=== PATIENT | male | born 1955 | race African-American/Black ===

== ENCOUNTER 2019-12-19 16:30 | Inpatient (IN) | payer MEDICARE ==
[2019-12-19] VITALS (15 sets, daily range): BP systolic 80–174; BP diastolic 34–90; BMI 17.0
[~2019-12-19] VITALS: Ht 180.3 cm; Wt 124.7 kg
--- NOTE | ~2019-12-19 | EC ---
PATIENT:JHON HERNANDEZ DATE OF SERVICE: 12/19/19 SEX: M MEDICAL RECORD: [id number] DATE OF : [birth year] LOCATION:[place] [address] AGE OF PATIENT: 64 ADMISSION DATE: 12/19/19 REFERRING PHYSICIAN: INTERPRETING PHYSICIAN: KD JAIMES MD ECHOCARDIOGRAM REPORT ECHO CHARGES 4 ECHO COMPLETE Date: 12/20/19 CLINICAL DIAGNOSIS: SOB ECHOCARDIOGRAPHIC MEASUREMENTS (adult normal given) AC root (d.<3.7cm) 3.3 cm LV Septum d (<1.2 cm> 1.1 cm Valve Excursion 1.8 cm LV Septum (systole) 1.7 cm Left Atria (s.<4.0cm> 4.1 cm LVPW d(<1.2cm) 0.8 cm RV (d.<2.3cm) 3.1 cm LVPW (sytole) 1.2 cm LV diastole(<5.6CM) 5.7 cm MV E-F(>70mm/sec) cm LV systole 3.6 cm LVOT Diameter 1.9 cm MV exc.(>10mm) cm Est.ejection fraction (50-75%) % DOPPLER: LVIT cm/sec A 54 cm/sec E 41 cm/sec LA cm/sec RVSP 15.0 mmHg LVOT 92 cm/sec AOP1/2T m/s Asc. Ao 118 cm/sec RVOT 68 cm/sec RA cm/sec PA 77 cm/sec AV Gradient Peak 5.6 mmHg AV Mean 3.0 mmHg AV Area 1.7 cm MV Gradient Peak 3.7 mmHg MV Mean 1.2 mmHg MV Area cm COMMENTS: Retail Account Manager: [facility] Final Inspector: Bryant Jaimes TAPE# PACS Pericardial Effusion Y DATE OF SERVICE: PROCEDURE: Transthoracic echocardiogram. FINDINGS: 1. Left ventricle is mildly dilated with left ventricular hypertrophy. Ejection fraction of 50%. There is mild global hypokinesis. 2. Left atrium is mildly enlarged. 3. The aortic valve shows normal structure and function. 4. Mitral valve is normal grossly with no evidence of significant mitral ECHOCARDIOGRAM REPORT [id number] JHON HERNANDEZ regurgitation. 5. Tricuspid valve has trace tricuspid regurgitation with normal pressures. 6. Right ventricle is mildly enlarged with normal function. 7. Right atrium is normal. 8. Pulmonic valve is normal. 9. There is a mild pericardial effusion without evidence of tamponade physiology. It may be reasonable to repeat that study next week to see if there has been any change in the pericardial effusion. TRANSINT:[id number] Voice Confirmation ID: [id number] DOCUMENT ID: [id number] KD JAIMES MD CC: [id number] DICTATION DATE: 12/21/19 1035 MACHINERY REPAIR MAINTENANCE SUPERVISOR: 12/21/19 1532 ADM IN [place] [id number] [place] [address]
[2019-12-19 20:59] LABS: ALBUMIN 2.6 g/dL (3.4-5.0); BILIRUBIN - DIRECT 0.3 mg/dL (0.00-0.30); BILIRUBIN - INDIRECT 0.5 mg/dL (0.00-1.00); BILIRUBIN - TOTAL 0.8 mg/dL (0.2-1.3); PROTEIN - SERUM 7.1 g/dL (6.4-8.2)
[2019-12-20] VITALS (24 sets, daily range): BP systolic 115–156; BP diastolic 61–100; BMI 17.0
[2019-12-20 04:12] LABS: BASOPHILS 0.3 % (0-2); EOSINOPHILS 0 % (0-7); HEMATOCRIT 38.6 % (42.0-54.0); IMMATURE GRANULOCYTES 0.3 % (0-5); LYMPHOCYTES 17.9 % (15-50); MCH 28.2 pg (26.0-34.0); MCHC 31.1 g/dL (31.0-37.0); MCV 90.8 fL (80.0-100.0); MEAN PLATELET VOLUME 10.7 fL (7.4-10.4); MONOCYTES 5.3 % (2-11); NEUTROPHILS 76.2 % (40-80); PLATELET COUNT 187 10x3/uL (130-400); RBC 4.25 10x6/uL (4.20-6.10); RDW 13.3 % (11.5-14.5); WBC 3.2 10x3/uL (4.8-10.8)
[2019-12-20 04:29] LABS: INR 0.98 (0.85-1.17)
[2019-12-20 04:31] LABS: D-DIMER-QUANTITATIVE 0.68 ug/mLFEU (0.20-0.54)
[2019-12-20 04:46] LABS: ALBUMIN 2.3 g/dL (3.4-5.0); ANION GAP 8.4 mmol/L (8-16); BILIRUBIN - TOTAL 0.6 mg/dL (0.2-1.3); CALCIUM 7.6 mg/dL (8.5-10.1); CARBON DIOXIDE 30.5 mmol/L (21.0-32.0); CREATININE - SERUM 1.7 mg/dL (0.6-1.3); MAGNESIUM - SERUM 1.8 mg/dL (1.8-2.4); POTASSIUM - SERUM 3.9 mmol/L (3.5-5.1); PROTEIN - SERUM 6.4 g/dL (6.4-8.2)
[2019-12-20 04:55] LABS: TROPONIN-I 1.275 ng/mL (0.000-0.060)
--- NOTE | 2019-12-20 11:30 | NUR ---
IV STARTED IN R HAND WITH 20 G CATH. FLUSHED EASILY AND GOOD BLOOD RETURN NOTED.
--- NOTE | 2019-12-20 12:38 | NUR ---
DR. ANAYA NOTIFIED OF CVP AND ARTLINE CONSULT.
--- NOTE | 2019-12-20 17:44 | NUR ---
SPOKE WITH DR. ANAYA ABOUT CVL PLACEMENT PER RADIOLOGIST REQUEST. INFORMED THAT WE COULD USE TO DRAW BLOOD BUT NOT PUT LARGE AMOUNTS OF FLUID THROUGH. DR. ANAYA WILL COME AND CHANGE IN THE AM.
--- NOTE | 2019-12-20 19:30 | NUR ---
SHIFT ASSESSMENT COMPLETED SEE FLOWSHEET VSS CPOC
[2019-12-21] VITALS (25 sets, daily range): BP systolic 129–198; BP diastolic 53–106
--- NOTE | 2019-12-21 02:50 | NUR ---
PT RESTING COMFORTABLY INTUBATED/SEDATED ON THE VENTILATOR. VSS CPOC
--- NOTE | 2019-12-21 03:54 | NUR ---
UNABLE TO OBTAIN SRS AT THIS TIME
[2019-12-21 05:58] LABS: BASOPHILS 0.3 % (0-2); EOSINOPHILS 0 % (0-7); HEMATOCRIT 35.5 % (42.0-54.0); HEMOGLOBIN 10.8 g/dL (13.5-17.5); MCH 27.7 pg (26.0-34.0); MCHC 30.4 g/dL (31.0-37.0); MEAN PLATELET VOLUME 10.8 fL (7.4-10.4); MONOCYTES 19.4 % (2-11); NEUTROPHILS 54.3 % (40-80); RDW 13.5 % (11.5-14.5); WBC 3.4 10x3/uL (4.8-10.8)
[2019-12-21 06:08] LABS: PLATELET COUNT 230 10x3/uL (130-400)
--- NOTE | 2019-12-21 06:38 | NUR ---
OGT AIR BOLUS AUDIBLE LLQ - TUBE FEED INITIATED AT THIS TIME PER ORDER. VSS WILL CONTINUE TO MONITOR
[2019-12-21 06:57] LABS: ALBUMIN 2.4 g/dL (3.4-5.0); ANION GAP 11.2 mmol/L (8-16); CALCIUM 8.3 mg/dL (8.5-10.1); CARBON DIOXIDE 28.5 mmol/L (21.0-32.0); CREATININE - SERUM 1.5 mg/dL (0.6-1.3); PHOSPHOROUS 1.9 mg/dL (2.5-4.9); POTASSIUM - SERUM 3.7 mmol/L (3.5-5.1); PROTEIN - SERUM 6.6 g/dL (6.4-8.2)
--- NOTE | 2019-12-21 07:10 | NUR ---
REPORT RECEIVED FROM OFF GOING NURSE. PATIENT LAYING IN BED ON BACK WITH HOB ELEVATED [address] WITH AC FIO2 50% RATE 20 PEEP 8 RR 19. CAMPOS CATHETER INTACT AND DRAINING CLEAR YELLOW URINE.LT IJ IN PLACE WITH MANIFOLD IN PLACE WIH IV INFUSING. SEE FLOWSHEET. SANDRA SOFT WRIST RESTRAINTS IN PLACE. WILL CONTINUE WITH PLAN OF CARE. SR UP X 2 BED IN LOW POSIION AND CALL LIGHT IN REACH.
[2019-12-21 07:48] LABS: BILIRUBIN - TOTAL 0.61 mg/dL (0.2-1.3)
--- NOTE | 2019-12-21 19:30 | NUR ---
SHIFT REPORT RECEIVED, PT SYSTOLIC 170-180 - PER OFF GOING NURSE RANDY HAS BEEN NOTIFIED AND IS HOPING PREVIOUSLY ORDERED MEDS WILL LOWER BLOOD PRESSURE A SIDE EFFECT. WILL CONTINUE TO MONITOR
--- NOTE | 2019-12-21 19:49 | NUR ---
paged dr aguayo at this time regarding patient status
--- NOTE | 2019-12-21 20:10 | NUR ---
dr aguayo returned call, new orders received
--- NOTE | 2019-12-21 20:56 | NUR ---
SHIFT ASSESSMENT COMPLETED SEE FLOWSHEET - NOTED TEMP, CALLED FAMILY PRACTICE ONCE OUTSIDE OF THE [facility] ROOM - SEE NOTE - SYSTOLIC 180-190'S - PATIENT RECEIVED SCHEDULED HTN MEDICATION PER ORDER, WILL MONITOR CLOSELY. PT SEDATED, RESPONSIVE TO PAIN. SEE FLOWSHEET FOR FULL ASSESSMENT
--- NOTE | 2019-12-21 22:02 | NUR ---
PAGED FAMILY PRACTICE AT THIS TIME - IMMEDIATE CALL BACK FROM KALEIGH GODOY APN - NEW ORDERS RECEIVED
--- NOTE | 2019-12-21 23:59 | NUR ---
PAGED DR PADILLA, IMMEDIATE CALL BACK, REPORTED PT SYSTOLIC OF 190 DESPITE ORDERED PO MEDICATIONS. NEW ORDERS RECEIVED AT THIS TIME.
[2019-12-22] VITALS (27 sets, daily range): BP systolic 130–290; BP diastolic 46–87
--- NOTE | 2019-12-22 07:10 | NUR ---
REPORT RECEIVED FROM FOUNDRY EQUIPMENT MECHANIC AND PATIENT CARE ASSUMED. PATIENT LAYING IN BED ON BACK WITH EYES CLOSED VENT IN PLACE AC RATE 20 FIO2 50% PEEP 8 02 SAT 96% BP 155/72 HR 86 R23. SANDRA SOFT WRIST RESTRAINTS IN PLACE. IV'S INFUSING TO LEFT SUBCLAVIAN CVL. ORAL CARE PERFORMED PATIENT REPOSIONED FOR COMFORT. WILL CONTINUE WITH PLAN OF CARE. SR UP X 2 BED IN LOW POSITON AND CALL LIGHT IN REACH.
--- NOTE | 2019-12-22 07:14 | NUR ---
DR TREVIÑO RETURNED CALL NEW ORDERS RECEIVED
[2019-12-22 07:43] LABS: BASOPHILS 0.2 % (0-2); EOSINOPHILS 0 % (0-7); HEMATOCRIT 36.2 % (42.0-54.0); HEMOGLOBIN 10.8 g/dL (13.5-17.5); IMMATURE GRANULOCYTES 0.2 % (0-5); LYMPHOCYTES 26.7 % (15-50); MCH 27.4 pg (26.0-34.0); MCHC 29.8 g/dL (31.0-37.0); MCV 91.9 fL (80.0-100.0); MEAN PLATELET VOLUME 10.5 fL (7.4-10.4); MONOCYTES 16.3 % (2-11); NEUTROPHILS 56.6 % (40-80); PLATELET COUNT 218 10x3/uL (130-400); RBC 3.94 10x6/uL (4.20-6.10); RDW 13.7 % (11.5-14.5)
[2019-12-22 07:55] LABS: WBC 4.3 10x3/uL (4.8-10.8)
[2019-12-22 08:16] LABS: ALBUMIN 2.3 g/dL (3.4-5.0); ANION GAP 8.9 mmol/L (8-16); BILIRUBIN - TOTAL 0.78 mg/dL (0.2-1.3); C-REACTIVE PROTEIN 5.3 mg/dL (0.0-0.9); CALCIUM 8.1 mg/dL (8.5-10.1); CARBON DIOXIDE 30.9 mmol/L (21.0-32.0); CREATININE - SERUM 1.3 mg/dL (0.6-1.3); MAGNESIUM - SERUM 2.1 mg/dL (1.8-2.4); PHOSPHOROUS 1.8 mg/dL (2.5-4.9); POTASSIUM - SERUM 3.8 mmol/L (3.5-5.1); PROTEIN - SERUM 6.4 g/dL (6.4-8.2)
[2019-12-23] VITALS (24 sets, daily range): BP systolic 117–153; BP diastolic 48–70
[2019-12-23 06:24] LABS: BASOPHILS 0.2 % (0-2); EOSINOPHILS 0 % (0-7); HEMATOCRIT 36.4 % (42.0-54.0); HEMOGLOBIN 10.8 g/dL (13.5-17.5); IMMATURE GRANULOCYTES 0.2 % (0-5); LYMPHOCYTES 21.1 % (15-50); MCH 27.3 pg (26.0-34.0); MCHC 29.7 g/dL (31.0-37.0); MCV 91.9 fL (80.0-100.0); MEAN PLATELET VOLUME 10.9 fL (7.4-10.4); MONOCYTES 11.5 % (2-11); PLATELET COUNT 230 10x3/uL (130-400); RBC 3.96 10x6/uL (4.20-6.10); RDW 13.5 % (11.5-14.5); WBC 4.3 10x3/uL (4.8-10.8)
[2019-12-23 07:28] LABS: ALBUMIN 2.3 g/dL (3.4-5.0); ANION GAP 8.4 mmol/L (8-16); BILIRUBIN - TOTAL 0.78 mg/dL (0.2-1.3); CALCIUM 7.9 mg/dL (8.5-10.1); CARBON DIOXIDE 28.5 mmol/L (21.0-32.0); CREATININE - SERUM 1.3 mg/dL (0.6-1.3); MAGNESIUM - SERUM 2.4 mg/dL (1.8-2.4); POTASSIUM - SERUM 3.9 mmol/L (3.5-5.1); PROTEIN - SERUM 6.3 g/dL (6.4-8.2)
[2019-12-23 07:29] LABS: PHOSPHOROUS 2.3 mg/dL (2.5-4.9)
--- NOTE | 2019-12-23 10:16 | NUR ---
Nutrition follow-up: Intubated, sedated with propofol @ 18 ml/hr Pulmocare started @ 15 ml/hr via OGT with increase to goal rate of 40 ml/hr Labs reviewed WT: 121# RDN following.
[2019-12-24] VITALS (24 sets, daily range): BP systolic 133–167; BP diastolic 47–70
[2019-12-24 07:21] LABS: BASOPHILS 0 % (0-2); EOSINOPHILS 0 % (0-7); HEMATOCRIT 36.1 % (42.0-54.0); HEMOGLOBIN 11.1 g/dL (13.5-17.5); IMMATURE GRANULOCYTES 0.3 % (0-5); LYMPHOCYTES 12.8 % (15-50); MCH 27.8 pg (26.0-34.0); MCHC 30.7 g/dL (31.0-37.0); MCV 90.5 fL (80.0-100.0); MEAN PLATELET VOLUME 10.6 fL (7.4-10.4); MONOCYTES 9.9 % (2-11); PLATELET COUNT 242 10x3/uL (130-400); RBC 3.99 10x6/uL (4.20-6.10); RDW 13.3 % (11.5-14.5)
[2019-12-24 07:28] LABS: WBC 6.1 10x3/uL (4.8-10.8)
[2019-12-24 07:42] LABS: ALBUMIN 2.1 g/dL (3.4-5.0); ANION GAP 8.6 mmol/L (8-16); BILIRUBIN - TOTAL 0.92 mg/dL (0.2-1.3); CALCIUM 8.1 mg/dL (8.5-10.1); CARBON DIOXIDE 28.3 mmol/L (21.0-32.0); CREATININE - SERUM 1.1 mg/dL (0.6-1.3); MAGNESIUM - SERUM 2.5 mg/dL (1.8-2.4); PHOSPHOROUS 2.6 mg/dL (2.5-4.9); POTASSIUM - SERUM 3.9 mmol/L (3.5-5.1); PROTEIN - SERUM 5.9 g/dL (6.4-8.2)
--- NOTE | 2019-12-24 10:25 | NUR ---
REBECCA, FAMILY MEMBER, CALLED AND PROVIED THE PASSWORD. UPDATE PROVIDED.
--- NOTE | 2019-12-24 16:20 | NUR ---
FULL CHD BED BATH GIVEN. FULL LINEN CHANGE. PT TOLERATED WELL.
[2019-12-25] VITALS (24 sets, daily range): BP systolic 139–162; BP diastolic 47–87
[2019-12-25 06:35] LABS: BASOPHILS 0.1 % (0-2); EOSINOPHILS 0 % (0-7); HEMATOCRIT 33.7 % (42.0-54.0); HEMOGLOBIN 10.4 g/dL (13.5-17.5); IMMATURE GRANULOCYTES 0.2 % (0-5); LYMPHOCYTES 6.2 % (15-50); MCHC 30.9 g/dL (31.0-37.0); MCV 90.8 fL (80.0-100.0); MEAN PLATELET VOLUME 10.9 fL (7.4-10.4); MONOCYTES 6.1 % (2-11); NEUTROPHILS 87.4 % (40-80); PLATELET COUNT 225 10x3/uL (130-400); RBC 3.71 10x6/uL (4.20-6.10); RDW 13.6 % (11.5-14.5)
[2019-12-25 06:38] LABS: WBC 12.6 10x3/uL (4.8-10.8)
[2019-12-25 07:09] LABS: ALBUMIN 1.9 g/dL (3.4-5.0); BILIRUBIN - TOTAL 0.89 mg/dL (0.2-1.3); CALCIUM 7.1 mg/dL (8.5-10.1); CARBON DIOXIDE 24.2 mmol/L (21.0-32.0); CREATININE - SERUM 1.2 mg/dL (0.6-1.3); MAGNESIUM - SERUM 2.4 mg/dL (1.8-2.4); PHOSPHOROUS 2.8 mg/dL (2.5-4.9); POTASSIUM - SERUM 3.5 mmol/L (3.5-5.1); PROTEIN - SERUM 5.1 g/dL (6.4-8.2)
[2019-12-25 07:16] LABS: ANION GAP 9.3 mmol/L (8-16)
--- NOTE | 2019-12-25 10:13 | NUR ---
Nutrition follow-up: Pt intubated, sedated with propofol @ 24 cc/hr Pulmocare infusing @ 25 ml/hr with goal rate of 40 ml/hr Labs reviewed Wt: 121# Pt should already be at goal rate Will discuss pt in IDT meeting today RDN following.
[2019-12-26] VITALS (24 sets, daily range): BP systolic 138–162; BP diastolic 39–67
--- NOTE | 2019-12-26 07:52 | NUR ---
PS TRIAL 13/12 @5097
[2019-12-26 07:55] LABS: BASOPHILS 0 % (0-2); EOSINOPHILS 0.1 % (0-7); HEMOGLOBIN 10.6 g/dL (13.5-17.5); IMMATURE GRANULOCYTES 0.4 % (0-5); LYMPHOCYTES 5.4 % (15-50); MCH 28.1 pg (26.0-34.0); MCHC 30.3 g/dL (31.0-37.0); MEAN PLATELET VOLUME 11.5 fL (7.4-10.4); MONOCYTES 6.4 % (2-11); NEUTROPHILS 87.7 % (40-80); PLATELET COUNT 210 10x3/uL (130-400); RBC 3.77 10x6/uL (4.20-6.10); RDW 13.9 % (11.5-14.5)
[2019-12-26 07:58] LABS: MCV 92.8 fL (80.0-100.0); WBC 16.9 10x3/uL (4.8-10.8)
[2019-12-26 08:05] LABS: BILIRUBIN - TOTAL 1.23 mg/dL (0.2-1.3); CALCIUM 8.2 mg/dL (8.5-10.1); CREATININE - SERUM 1.3 mg/dL (0.6-1.3); PROTEIN - SERUM 5.5 g/dL (6.4-8.2)
[2019-12-26 08:07] LABS: ANION GAP 10.2 mmol/L (8-16); POTASSIUM - SERUM 4.2 mmol/L (3.5-5.1)
--- NOTE | 2019-12-26 10:19 | NUR ---
spoke with pt family member. gave update and answered questions. will continue to monitor
--- NOTE | 2019-12-26 14:57 | NUR ---
pt switched back over to a/c on vent. became agitated so switched over. will continue to monitor
[2019-12-27] VITALS (26 sets, daily range): BP systolic 140–169; BP diastolic 49–67
[2019-12-27 06:38] LABS: BASOPHILS 0 % (0-2); EOSINOPHILS 0 % (0-7); HEMATOCRIT 30.9 % (42.0-54.0); HEMOGLOBIN 9.2 g/dL (13.5-17.5); IMMATURE GRANULOCYTES 0.5 % (0-5); LYMPHOCYTES 5.1 % (15-50); MCH 27.7 pg (26.0-34.0); MCHC 29.8 g/dL (31.0-37.0); MCV 93.1 fL (80.0-100.0); MONOCYTES 5.4 % (2-11); PLATELET COUNT 170 10x3/uL (130-400); RBC 3.32 10x6/uL (4.20-6.10); RDW 14.3 % (11.5-14.5); WBC 17.5 10x3/uL (4.8-10.8)
[2019-12-27 07:22] LABS: ALBUMIN 1.7 g/dL (3.4-5.0); BILIRUBIN - TOTAL 1.98 mg/dL (0.2-1.3); CALCIUM 7.1 mg/dL (8.5-10.1); CARBON DIOXIDE 24.1 mmol/L (21.0-32.0); CREATININE - SERUM 1.1 mg/dL (0.6-1.3)
[2019-12-27 07:28] LABS: ANION GAP 11.3 mmol/L (8-16); POTASSIUM - SERUM 3.4 mmol/L (3.5-5.1)
--- NOTE | 2019-12-27 13:24 | NUR ---
Nutrition Follow-up: Chart reviewed and per IDT, patient is off vent and tolerating BiPap. TF order: Pulmocare @ 10mL/hr-- TF off at this time Last BM: none recorded since admit x 8 days now. Wt: 122# (12/20/19) Meds noted: SSI, zinc sulfate, vit D, vit C Labs noted: Na 154(H), K 3.4(L), BUN 31(H), Glu 256(H), POC Glu 273(H) Recommend COLLECTION SYSTEMS TECHNICIAN eval for safe PO diet initiation. Recommend Diabetic and Cardiac diet restrictions. If unable to initiate PO diet within 24-48hrs recommend resume nutrition support. RD following.
--- NOTE | 2019-12-27 21:22 | MORECARE ---
CASE MANAGEMENT DISCHARGE SUMMARY PATIENT: JHON HERNANDEZ UNIT: [id number] ADM DATE: 12/19/19 AGE: 64 : 59 SEX: M ROOM/BED: D.2310 AUTHOR: CONNIE MURDOCK PHYSICIAN: REFERRING PHYSICIAN: INDIA LOPES MD DATE OF SERVICE: 12/27/19 Discharge Plan Patient Name: JHON HERNANDEZ [facility] [facility] 1955 Planned Disposition: Anticipated Discharge Date: Discharge Date: Expected LOS: Initial Reviewer: [email or web address] Initial Review Date: 12/19/2019 Generated: 12/27/19 10:22 pm DCPIA - Discharge Planning Initial Assessment Updated by [email or web address]: Claudia Vásquez on 12/27/19 9:21 pm * Is the patient Alert and Oriented? No * PCP [facility] * Pharmacy [facility] * Preadmission Environment [facility] * Facility Name [facility] * ADLs Partial Dependent * Partial ADLs (Assistance needed) Ambulation Bathing Dressing Eating Medication Management Toileting Transfers * Equipment Wheelchair * List name and contact numbers for known caregivers / representatives who currently or will assist patient after discharge: Kristen posadas- [phone] Donita Thomas boothe - [phone] * Verbal permission to speak to the caregivers and representatives has been obtained from the patient. No * Additional services required to return to the preadmission environment? No * Can the patient safely return to the preadmission environment? Yes * Has this patient been hospitalized within the prior 30 days at any hospital? No Patient Name: JHON HERNANDEZ Page 30395 at 2122 All edits/amendments must be made on the electronic document DICTATION DATE: 12/27/192121 INSPECTOR CASING: LOUIS 12/27/192121 RPT#: [id number] DC DATE: STATUS: ADM IN [facility] [address] [place] [address] END OF REPORT
--- NOTE | 2019-12-27 21:29 | MORECARE ---
CASE MANAGEMENT DISCHARGE SUMMARY PATIENT: JHON HERNANDEZ UNIT: [id number] ADM DATE: 12/19/19 AGE: 64 : 59 SEX: M ROOM/BED: D.2310 AUTHOR: COLLETTE,DOC PHYSICIAN: REFERRING PHYSICIAN: INDIA LOPES MD DATE OF SERVICE: 12/27/19 Discharge Plan Patient Name: JHON HERNANDEZ Facility: [facility]:[place] : 1955 Planned Disposition: Anticipated Discharge Date: Discharge Date: Expected LOS: Initial Reviewer: [email or web address] Initial Review Date: 12/19/2019 Generated: 12/27/19 10:29 pm Comments DCP- Discharge Planning Updated by [email or web address]: Claudia Vásquez on 12/27/19 8:[address] Patient Name: JHON HERNANDEZ Admission Status: Elective Accout number: [id number] Admission Date: 12-19-2019 : 1955 Admission Diagnosis:COVID-19 Attending: INDIA LOPES Current LOS: 8 Anticipated DC Date: Planned Disposition: Primary Insurance: MEDICARE A & B Discharge Planning Comments: CM called and spoke with patient's contact Kristen Washington [phone]. Kristen stated that the patient was a skilled nursing resident at [facility] and plan will be for him return there upon discharge. CM will continue to follow and assist as needed with discharge planning / needs. Operational Intelligence Officer: Claudia Vásquez DCPIA - Discharge Planning Initial Assessment Updated by [email or web address]: Claudia Vásquez on 12/27/19 9:21 pm * Is the patient Alert and Oriented? No * PCP [facility] * Pharmacy [facility] * Preadmission Environment Manager Residential Snf * Facility Name [facility] * ADLs Partial Dependent * Partial ADLs (Assistance needed) Ambulation Bathing Dressing Eating Medication Management Toileting Transfers * Equipment Wheelchair * List name and contact numbers for known caregivers / representatives who currently or will assist patient after discharge: Kristen posadas- [phone] Donita boothe - [phone] * Verbal permission to speak to the caregivers and representatives has been obtained from the patient. No * Additional services required to return to the preadmission environment? No * Can the patient safely return to the preadmission environment? Yes * Has this patient been hospitalized within the prior 30 days at any hospital? No Last DP export: 12/27/19 8:23 p Patient Name: JHON HERNANDEZ Page 00005 at 2128 All edits/amendments must be made on the electronic document DICTATION DATE: 12/27/192128 ENGINEERING COORDINATOR: LOUIS 12/27/192128 RPT#: [id number] DC DATE: STATUS: ADM IN [facility] [address] [place] [address] END OF REPORT
[2019-12-28] VITALS (25 sets, daily range): BP systolic 90–168; BP diastolic 41–93
[2019-12-28 06:20] LABS: BILIRUBIN - TOTAL 4.13 mg/dL (0.2-1.3); CALCIUM 8.4 mg/dL (8.5-10.1); CREATININE - SERUM 1.2 mg/dL (0.6-1.3); MAGNESIUM - SERUM 2.7 mg/dL (1.8-2.4); PHOSPHOROUS 3.4 mg/dL (2.5-4.9); PROTEIN - SERUM 6.1 g/dL (6.4-8.2)
[2019-12-28 06:26] LABS: HEMATOCRIT 36.5 % (42.0-54.0); HEMOGLOBIN 10.7 g/dL (13.5-17.5); MCH 28.2 pg (26.0-34.0); MCHC 29.3 g/dL (31.0-37.0); MCV 96.3 fL (80.0-100.0); MEAN PLATELET VOLUME 12.1 fL (7.4-10.4); PLATELET COUNT 179 10x3/uL (130-400); RBC 3.79 10x6/uL (4.20-6.10); RDW 14.8 % (11.5-14.5); WBC 27.4 10x3/uL (4.8-10.8)
[2019-12-28 06:27] LABS: ANION GAP 9.3 mmol/L (8-16); CARBON DIOXIDE 31.9 mmol/L (21.0-32.0); POTASSIUM - SERUM 4.2 mmol/L (3.5-5.1)
[2019-12-28 07:24] LABS: LYMPHOCYTES 3 % (15-50); NEUTROPHILS 96 % (40-80); PLATELET ESTIMATE NORMAL
[2019-12-28 07:25] LABS: ANISOCYTOSIS OCC
--- NOTE | 2019-12-28 10:30 | NUR ---
NG INSERTED LEFT NARES WITH MINIMAL DIFFICULTY AIR BOLUS AUDIBLE INABD. 100 ML OF WATER INJECTED WITHOUT DIFFICULTY. PO MEDS GIVEN PER NG. PATIENT TOLERATED FAIR.
[2019-12-28 15:10] LABS: AEROBE ID Final report (()); RESULT 1 Proteus mirabilis (())
--- NOTE | 2019-12-28 15:18 | NUR ---
COMPLETE HIBCLENS BATH GIVEN. PATIENT UNABLE TO ASSIST WITH TURNING. TOTAL LIFT TO TURN PATIENT. LEFT BUTTOCK BLISTER NOTED. NO OTHER SKIN BREAKDOWN NOTED. HEEL PROTECTORS INPLACE. HEELS BRIDGE ON PILLOW NO DISCOLORATION ON HEELS. PATIENT HAS TO BE STIMULATED TO STAY AWAKE. 100 ML OF WATER DOWN NG TUBE. CAMPOS CATH CARE PATIENT TOLERATED WELL.
[2019-12-28 18:55] LABS: ANION GAP 5.8 mmol/L (8-16); CALCIUM 8.5 mg/dL (8.5-10.1); CREATININE - SERUM 1.3 mg/dL (0.6-1.3); POTASSIUM - SERUM 4.8 mmol/L (3.5-5.1)
[2019-12-29] VITALS (86 sets, daily range): BP systolic 109–164; BP diastolic 44–79
--- NOTE | 2019-12-29 00:36 | NUR ---
2145- PATIENT DESAT TO LOW 80S%. UNRESPONSIVE. OBTAIN ABG. PAGED DR. NGUYEN AT 221 AND SPOKE WITH HIM. NEW ORDERS FOR INTUBATION AND SEDATION ONCE INTUBATED PRN. CALLED DR. ANAYA AT 2226 FOR INTUBATION. SPOKE WITH FAMILY, REBECCA GORDILLO, AT 2218 FOR PATIENT UPDATE. INTUBATED PATIENT AT 2310. STILL UNRESPONSIVE. AT 0020- PATIENT STARTING TO WAKE UP, LOOKING AROUND, TRYING TO MOVE ARMS AROUND. SEDATION STARTED AT THIS TIME.
--- NOTE | 2019-12-29 05:08 | NUR ---
0330- REBECCA GORDILLO CALLED FOR UPDATE. PASSCODE GIVEN. UPDATE GIVEN TO FAMILY
[2019-12-29 06:01] LABS: BASOPHILS 0 % (0-2); EOSINOPHILS 0 % (0-7); HEMATOCRIT 33.3 % (42.0-54.0); HEMOGLOBIN 9.2 g/dL (13.5-17.5); IMMATURE GRANULOCYTES 0.6 % (0-5); MCHC 27.6 g/dL (31.0-37.0); MCV 97.7 fL (80.0-100.0); MONOCYTES 4.1 % (2-11); NEUTROPHILS 92.3 % (40-80); PLATELET COUNT 147 10x3/uL (130-400); RBC 3.41 10x6/uL (4.20-6.10); RDW 14.7 % (11.5-14.5); WBC 19.7 10x3/uL (4.8-10.8)
[2019-12-29 06:34] LABS: ALBUMIN 1.7 g/dL (3.4-5.0); BILIRUBIN - TOTAL 3.11 mg/dL (0.2-1.3); CALCIUM 8.5 mg/dL (8.5-10.1); CARBON DIOXIDE 30.6 mmol/L (21.0-32.0); POTASSIUM - SERUM 4.4 mmol/L (3.5-5.1); PROTEIN - SERUM 5.6 g/dL (6.4-8.2)
[2019-12-29 06:35] LABS: ANION GAP 10.8 mmol/L (8-16); PHOSPHOROUS 2.5 mg/dL (2.5-4.9)
--- NOTE | 2019-12-29 11:00 | NUR ---
TUBE FEEDING STARTED. GLUCERNA AT 20 ML HOUR WITH FLUSH 100ML Q [address] CHECK FOR PL[address] MENT PRIOR TO STARTING TUBE FEEDING. HEAD OF BED ELEVATED 30 DEGREES.
--- NOTE | 2019-12-29 13:00 | NUR ---
COMPLETE HIBCLENS BATH GIVEN MEDIPLEX APPLIED TO BUTTOCK. BLISTERS NOTED ON RIGHT BUTTOCK. PATIENT OPENS EYES EASILY TO STIMULATION. DID OBEY COMMANDS. HEEL PROTECTORS IN PLACE. YASMINE LEFT RADIAL GOOD WAVE FORM. CAMPOS CATH PATENT.
[2019-12-30] VITALS (89 sets, daily range): BP systolic 126–158; BP diastolic 45–79
--- NOTE | 2019-12-30 00:57 | NUR ---
CALLED [facility], SPOKE WITH DR. WOODS ABOUT VANC TROUGH. ORDERS CHANGED
--- NOTE | 2019-12-30 03:32 | NUR ---
CHANGED CVL DRESSING PER PROTOCOL
[2019-12-30 05:01] LABS: BASOPHILS 0 % (0-2); EOSINOPHILS 0 % (0-7); HEMATOCRIT 28.4 % (42.0-54.0); HEMOGLOBIN 8.7 g/dL (13.5-17.5); IMMATURE GRANULOCYTES 0.4 % (0-5); LYMPHOCYTES 4.1 % (15-50); MCHC 30.6 g/dL (31.0-37.0); MEAN PLATELET VOLUME 12.6 fL (7.4-10.4); MONOCYTES 4.3 % (2-11); NEUTROPHILS 91.2 % (40-80); PLATELET COUNT 150 10x3/uL (130-400); RBC 3.11 10x6/uL (4.20-6.10); RDW 14.5 % (11.5-14.5)
[2019-12-30 05:02] LABS: MCV 91.3 fL (80.0-100.0); WBC 13.6 10x3/uL (4.8-10.8)
[2019-12-30 05:32] LABS: ALBUMIN 1.7 g/dL (3.4-5.0); BILIRUBIN - TOTAL 2.8 mg/dL (0.2-1.3); CALCIUM 7.9 mg/dL (8.5-10.1); CARBON DIOXIDE 27.6 mmol/L (21.0-32.0); MAGNESIUM - SERUM 2.9 mg/dL (1.8-2.4); PHOSPHOROUS 3.1 mg/dL (2.5-4.9); PROTEIN - SERUM 5.3 g/dL (6.4-8.2)
[2019-12-30 05:33] LABS: ANION GAP 10.9 mmol/L (8-16); CREATININE - SERUM 3.1 mg/dL (0.6-1.3); POTASSIUM - SERUM 3.5 mmol/L (3.5-5.1)
--- NOTE | 2019-12-30 06:26 | NUR ---
PAGED MACHINIST BENCH FOR KALEIGH FALK APRN AT THIS TIME. CRITICAL LAB FOR GLUCOSE 422 APPROX 0530. GIVEN 28 UNITS PER ORDRES. RECHECKED FSBS AND IS NOW 445.
--- NOTE | 2019-12-30 06:29 | NUR ---
KALEIGH JHA CALLED BACK. NO NEW ORDERS AT THIS TIME
[2019-12-31] VITALS (43 sets, daily range): BP systolic 126–154; BP diastolic 54–620; Ht 180.3 cm; Wt 124.7 kg
[2019-12-31 06:10] LABS: BASOPHILS 0 % (0-2); EOSINOPHILS 0 % (0-7); HEMATOCRIT 25.1 % (42.0-54.0); HEMOGLOBIN 7.8 g/dL (13.5-17.5); IMMATURE GRANULOCYTES 0.4 % (0-5); LYMPHOCYTES 3.6 % (15-50); MCH 27.7 pg (26.0-34.0); MCHC 31.1 g/dL (31.0-37.0); MEAN PLATELET VOLUME 12.8 fL (7.4-10.4); MONOCYTES 4.2 % (2-11); NEUTROPHILS 91.8 % (40-80); PLATELET COUNT 126 10x3/uL (130-400); RBC 2.82 10x6/uL (4.20-6.10); RDW 14.1 % (11.5-14.5); WBC 10.6 10x3/uL (4.8-10.8)
[2019-12-31 06:44] LABS: ALBUMIN 1.4 g/dL (3.4-5.0); BILIRUBIN - TOTAL 2.11 mg/dL (0.2-1.3); CREATININE - SERUM 3.2 mg/dL (0.6-1.3); PROTEIN - SERUM 4.5 g/dL (6.4-8.2); VANCOMYCIN - RANDOM 21.6 ug/mL (10.0-20.0)
[2019-12-31 06:46] LABS: CARBON DIOXIDE 20.3 mmol/L (21.0-32.0); POTASSIUM - SERUM 3.3 mmol/L (3.5-5.1)
[2019-12-31 06:47] LABS: CALCIUM 6.9 mg/dL (8.5-10.1)
--- NOTE | 2019-12-31 11:03 | NUR ---
Nutrition follow-up: Pt intubated, sedated; Covid+ Glucerna 1.0 sonya started @ 20 ml/hr No goal rate; flush Labs reviewed Wt: 261# Recommend increasing TF to goal rate of 75 ml/hr RDN following.
--- NOTE | 2019-12-31 12:58 | NUR ---
[address] K PER [address] PADILLA
[2019-12-31 19:12] LABS: BILIRUBIN NEGATIVE (NEGATIVE); KETONE NEGATIVE (NEGATIVE); NITRITE NEGATIVE (NEGATIVE); UROBILINOGEN NORMAL (NORMAL)
[2019-12-31 19:13] LABS: CREATININE - URINE 42.9 mg/dL (30-125); PRO/CRE RATIO URINE 1.2 mg/g; PROTEIN - URINE 50.2 mg/dL (0.0-11.9)
[2019-12-31 19:13] LABS: ANION GAP 12.1 mmol/L (8-16); CALCIUM 7.6 mg/dL (8.5-10.1); CARBON DIOXIDE 21.6 mmol/L (21.0-32.0); CREATININE - SERUM 3.7 mg/dL (0.6-1.3); POTASSIUM - SERUM 3.7 mmol/L (3.5-5.1)
[2019-12-31 19:14] LABS: BACTERIA MANY /hpf (NONE SEEN)
[2019-12-31 19:16] LABS: GRANULAR CAST 0-5 /lpf (NONE SEEN)
[2020-01-01] VITALS (24 sets, daily range): BP systolic 117–147; BP diastolic 48–59
[2020-01-01 04:40] LABS: BASOPHILS 0 % (0-2); EOSINOPHILS 0 % (0-7); HEMATOCRIT 27.6 % (42.0-54.0); HEMOGLOBIN 8.7 g/dL (13.5-17.5); IMMATURE GRANULOCYTES 0.3 % (0-5); MCH 27.7 pg (26.0-34.0); MCHC 31.5 g/dL (31.0-37.0); MCV 87.9 fL (80.0-100.0); MEAN PLATELET VOLUME 12.6 fL (7.4-10.4); MONOCYTES 4.6 % (2-11); NEUTROPHILS 92.1 % (40-80); PLATELET COUNT 135 10x3/uL (130-400); RBC 3.14 10x6/uL (4.20-6.10); RDW 13.9 % (11.5-14.5); WBC 12.3 10x3/uL (4.8-10.8)
[2020-01-01 05:08] LABS: ALBUMIN 1.6 g/dL (3.4-5.0); ANION GAP 14.1 mmol/L (8-16); BILIRUBIN - TOTAL 1.89 mg/dL (0.2-1.3); CALCIUM 7.4 mg/dL (8.5-10.1); CARBON DIOXIDE 20.4 mmol/L (21.0-32.0); CREATININE - SERUM 3.8 mg/dL (0.6-1.3); MAGNESIUM - SERUM 2.7 mg/dL (1.8-2.4); POTASSIUM - SERUM 3.5 mmol/L (3.5-5.1); VANCOMYCIN - RANDOM 24.2 ug/mL (10.0-20.0)
--- NOTE | 2020-01-01 13:23 | NUR ---
Nutrition follow-up: Pt intubated, sedated Labs reviewed Glucerna TF off 2/2 not tolerating; high residuals with no BM per Crystal RN Wt: 290# Spoke with Jennifer Renal LOGISTICS ADMINISTRATOR re: Bettie RDN following.
--- NOTE | 2020-01-01 16:30 | NUR ---
PATIENT RECEIVED FROM MED-II ALERT AND ORIENTED X3. COMMUNICATES NEEDS WELL. PATIENT MOVED OVER TO ICU BED 2311 IN STABLE CONDITION. LUNGS CTA THROUGHOUT AND DIMINISHED IN BASES BILAT. RESP UNLABORED AND EVEN. BIPAP PLACED ON PATIENT PER RT. BS PRESENT X4 QUADS. SKIN WARM/DRY AND PINK. CAP REFILL <3SEC. PERRL 2/2. 20G IV NOTED IN R FA WITHOUT REDNESS OR EDEMA NOTED SALINE LOCKED. CALL LIGHT WITHIN REACH, BED IN LOW POSITION, AND WILL CONTINUE TO MONITOR PATIENT. IVF STARTED PER MD ORDER OF NS AT 100ML/HR.
--- NOTE | 2020-01-01 17:00 | NUR ---
PUREWICK APPLIED FOR PATIENT. IMMEDIATE RETURN OF BETITO URINE NOTED. CALL LIGHT WITHIN REACH, BED IN LOW POSITION, AND WILL CONTINUE TO MONITOR.
[2020-01-02] VITALS (21 sets, daily range): BP systolic 114–149; BP diastolic 48–71
[2020-01-02 05:08] LABS: BASOPHILS 0.1 % (0-2); EOSINOPHILS 0 % (0-7); HEMOGLOBIN 8.6 g/dL (13.5-17.5); IMMATURE GRANULOCYTES 0.6 % (0-5); LYMPHOCYTES 3.7 % (15-50); MCH 27.7 pg (26.0-34.0); MCHC 31.9 g/dL (31.0-37.0); MCV 86.8 fL (80.0-100.0); MONOCYTES 3.2 % (2-11); NEUTROPHILS 92.4 % (40-80); PLATELET COUNT 142 10x3/uL (130-400); RBC 3.11 10x6/uL (4.20-6.10); WBC 13.7 10x3/uL (4.8-10.8)
[2020-01-02 05:18] LABS: ALBUMIN 1.7 g/dL (3.4-5.0); ANION GAP 14.9 mmol/L (8-16); BILIRUBIN - TOTAL 1.5 mg/dL (0.2-1.3); CALCIUM 7.7 mg/dL (8.5-10.1); CARBON DIOXIDE 21.6 mmol/L (21.0-32.0); CREATININE - SERUM 3.9 mg/dL (0.6-1.3); POTASSIUM - SERUM 3.5 mmol/L (3.5-5.1); PROTEIN - SERUM 5.2 g/dL (6.4-8.2); VANCOMYCIN - RANDOM 20.4 ug/mL (10.0-20.0)
[2020-01-03] VITALS (24 sets, daily range): BP systolic 49–168; BP diastolic 61–85
[2020-01-03 06:09] LABS: ANION GAP 15.3 mmol/L (8-16); CALCIUM 7.7 mg/dL (8.5-10.1); CARBON DIOXIDE 21.9 mmol/L (21.0-32.0); CREATININE - SERUM 4.2 mg/dL (0.6-1.3); POTASSIUM - SERUM 3.2 mmol/L (3.5-5.1)
[2020-01-03 06:57] LABS: BASOPHILS 0.1 % (0-2); EOSINOPHILS 0 % (0-7); HEMATOCRIT 26.2 % (42.0-54.0); HEMOGLOBIN 8.4 g/dL (13.5-17.5); IMMATURE GRANULOCYTES 1.1 % (0-5); LYMPHOCYTES 3.5 % (15-50); MCHC 32.1 g/dL (31.0-37.0); MCV 87.3 fL (80.0-100.0); MEAN PLATELET VOLUME 12.4 fL (7.4-10.4); MONOCYTES 3.8 % (2-11); NEUTROPHILS 91.5 % (40-80); PLATELET COUNT 147 10x3/uL (130-400); RDW 14.3 % (11.5-14.5)
--- NOTE | 2020-01-03 09:07 | NUR ---
DECREASE O2 40%
--- NOTE | 2020-01-03 10:49 | NUR ---
Nutrition follow-up: Pt intubated Glucerna infusing @ 10 ml/hr with goal rate of 75 ml/hr TF not advancing 2/2 high residuals (75 ml) Pt still with no BM after Reglan started RDN following.
--- NOTE | 2020-01-03 14:22 | NUR ---
DECREASE PEEP TO 8
[2020-01-04] VITALS (22 sets, daily range): BP systolic 125–171; BP diastolic 59–71
[2020-01-04 05:26] LABS: BASOPHILS 0.1 % (0-2); EOSINOPHILS 0 % (0-7); HEMATOCRIT 27.5 % (42.0-54.0); HEMOGLOBIN 8.6 g/dL (13.5-17.5); IMMATURE GRANULOCYTES 1.8 % (0-5); LYMPHOCYTES 3.5 % (15-50); MCH 27.4 pg (26.0-34.0); MCHC 31.3 g/dL (31.0-37.0); MCV 87.6 fL (80.0-100.0); MEAN PLATELET VOLUME 12.7 fL (7.4-10.4); MONOCYTES 3.3 % (2-11); NEUTROPHILS 91.3 % (40-80); PLATELET COUNT 173 10x3/uL (130-400); RBC 3.14 10x6/uL (4.20-6.10); RDW 14.7 % (11.5-14.5); WBC 15.8 10x3/uL (4.8-10.8)
[2020-01-04 05:50] LABS: ANION GAP 15.1 mmol/L (8-16); CALCIUM 7.8 mg/dL (8.5-10.1); CARBON DIOXIDE 23.1 mmol/L (21.0-32.0); CREATININE - SERUM 3.9 mg/dL (0.6-1.3); MAGNESIUM - SERUM 2.5 mg/dL (1.8-2.4); PHOSPHOROUS 5.6 mg/dL (2.5-4.9); POTASSIUM - SERUM 3.2 mmol/L (3.5-5.1); VANCOMYCIN - RANDOM 13.6 ug/mL (10.0-20.0)
--- NOTE | 2020-01-04 06:54 | NUR ---
DR BIGGS HERE AT BEDSIDE. AWARE OF BUN LEVEL.
[2020-01-04 14:36] LABS: ANION GAP 14.7 mmol/L (8-16); CALCIUM 7.7 mg/dL (8.5-10.1); CARBON DIOXIDE 23.6 mmol/L (21.0-32.0); CREATININE - SERUM 3.8 mg/dL (0.6-1.3); POTASSIUM - SERUM 3.3 mmol/L (3.5-5.1)
[2020-01-05] VITALS (22 sets, daily range): BP systolic 118–180; BP diastolic 45–69
[2020-01-05 04:35] LABS: BASOPHILS 0 % (0-2); EOSINOPHILS 0 % (0-7); HEMATOCRIT 24.4 % (42.0-54.0); HEMOGLOBIN 7.7 g/dL (13.5-17.5); IMMATURE GRANULOCYTES 1.7 % (0-5); LYMPHOCYTES 4.1 % (15-50); MCH 27.9 pg (26.0-34.0); MCHC 31.6 g/dL (31.0-37.0); MCV 88.4 fL (80.0-100.0); MEAN PLATELET VOLUME 11.6 fL (7.4-10.4); MONOCYTES 4.3 % (2-11); NEUTROPHILS 89.9 % (40-80); PLATELET COUNT 167 10x3/uL (130-400); RBC 2.76 10x6/uL (4.20-6.10); RDW 14.8 % (11.5-14.5); WBC 13.3 10x3/uL (4.8-10.8)
[2020-01-05 04:53] LABS: ANION GAP 12.5 mmol/L (8-16); CALCIUM 7.8 mg/dL (8.5-10.1); CARBON DIOXIDE 23.9 mmol/L (21.0-32.0); CREATININE - SERUM 3.6 mg/dL (0.6-1.3); POTASSIUM - SERUM 3.4 mmol/L (3.5-5.1); VANCOMYCIN - RANDOM 17.7 ug/mL (10.0-20.0)
[2020-01-06] VITALS (18 sets, daily range): BP systolic 112–173; BP diastolic 44–72
[2020-01-06 06:39] LABS: BASOPHILS 0 % (0-2); EOSINOPHILS 0.1 % (0-7); HEMATOCRIT 24.1 % (42.0-54.0); IMMATURE GRANULOCYTES 1.5 % (0-5); MCH 27.3 pg (26.0-34.0); MCHC 31.1 g/dL (31.0-37.0); MCV 87.6 fL (80.0-100.0); MONOCYTES 4.3 % (2-11); NEUTROPHILS 88.1 % (40-80); RBC 2.75 10x6/uL (4.20-6.10); RDW 15.3 % (11.5-14.5); WBC 15.1 10x3/uL (4.8-10.8)
[2020-01-06 06:40] LABS: ALBUMIN 1.7 g/dL (3.4-5.0); ANION GAP 13.5 mmol/L (8-16); BILIRUBIN - TOTAL 0.61 mg/dL (0.2-1.3); CALCIUM 7.8 mg/dL (8.5-10.1); CREATININE - SERUM 3.4 mg/dL (0.6-1.3); MAGNESIUM - SERUM 2.2 mg/dL (1.8-2.4); PHOSPHOROUS 5.5 mg/dL (2.5-4.9); POTASSIUM - SERUM 3.5 mmol/L (3.5-5.1); PROTEIN - SERUM 4.9 g/dL (6.4-8.2); VANCOMYCIN - RANDOM 14.6 ug/mL (10.0-20.0)
[2020-01-06 06:42] LABS: HEMOGLOBIN 7.5 g/dL (13.5-17.5); PLATELET COUNT 124 10x3/uL (130-400)
--- NOTE | 2020-01-06 08:41 | NUR ---
Nutrition follow-up: Pt remains intubated, sedated with propofol Glucerna 1.0 sonya @ 30 ml/hr labs reviewed Wt: 281# Recommend TF goal rate of 75 ml/hr RDN following.
[2020-01-07] VITALS (22 sets, daily range): BP systolic 122–189; BP diastolic 55–78
[2020-01-07 08:40] LABS: BASOPHILS 0 % (0-2); EOSINOPHILS 0.1 % (0-7); HEMATOCRIT 25.1 % (42.0-54.0); HEMOGLOBIN 7.8 g/dL (13.5-17.5); IMMATURE GRANULOCYTES 1.4 % (0-5); LYMPHOCYTES 4.5 % (15-50); MCH 26.8 pg (26.0-34.0); MCHC 31.1 g/dL (31.0-37.0); MCV 86.3 fL (80.0-100.0); MEAN PLATELET VOLUME 12.1 fL (7.4-10.4); RBC 2.91 10x6/uL (4.20-6.10); RDW 15.9 % (11.5-14.5); WBC 13.4 10x3/uL (4.8-10.8)
[2020-01-07 08:50] LABS: ALBUMIN 1.8 g/dL (3.4-5.0); ANION GAP 16.3 mmol/L (8-16); BILIRUBIN - TOTAL 0.76 mg/dL (0.2-1.3); CREATININE - SERUM 2.9 mg/dL (0.6-1.3); PHOSPHOROUS 4.9 mg/dL (2.5-4.9); POTASSIUM - SERUM 3.3 mmol/L (3.5-5.1); PROTEIN - SERUM 4.4 g/dL (6.4-8.2)
[2020-01-07 08:52] LABS: PLATELET COUNT 149 10x3/uL (130-400)
--- NOTE | 2020-01-07 10:24 | NUR ---
PER DR RODRIGUEZ, GIVE 40 MEQ K PO X1.
--- NOTE | 2020-01-07 12:41 | NUR ---
DR NGUYEN AT THE PTS BEDSIDE. ORDERS FOR SURGERY CONSULT FOR PEG AND TRACH.
--- NOTE | 2020-01-07 12:47 | NUR ---
DR SRIVASTAVA NOTIFIED AND AWARE OF CONSULT.
--- NOTE | 2020-01-07 13:16 | NUR ---
DR JAMIA FOX AT THE PTS BEDSIDE. SHE SPOKE WITH THE PTS AUNT. SEE ORDERS.
[2020-01-07 13:39] LABS: APTT 23.2 SECONDS (22.8-39.4); INR 1.03 (0.85-1.17); PROTIME 13.5 SECONDS (11.6-15.0)
[2020-01-08] VITALS (24 sets, daily range): BP systolic 115–204; BP diastolic 51–76
[2020-01-08 03:14] LABS: CREATININE - SERUM 2.8 mg/dL (0.6-1.3); VANCOMYCIN - RANDOM 26.2 ug/mL (10.0-20.0)
[2020-01-08 06:02] LABS: BASOPHILS 0.1 % (0-2); EOSINOPHILS 0.2 % (0-7); HEMATOCRIT 28.8 % (42.0-54.0); HEMOGLOBIN 9.2 g/dL (13.5-17.5); IMMATURE GRANULOCYTES 2.6 % (0-5); LYMPHOCYTES 5.9 % (15-50); MCH 27.7 pg (26.0-34.0); MCHC 31.9 g/dL (31.0-37.0); MCV 86.7 fL (80.0-100.0); NEUTROPHILS 87.2 % (40-80); PLATELET COUNT 169 10x3/uL (130-400); RBC 3.32 10x6/uL (4.20-6.10); RDW 16.1 % (11.5-14.5)
[2020-01-08 06:04] LABS: WBC 17.6 10x3/uL (4.8-10.8)
[2020-01-08 06:09] LABS: ANION GAP 15.9 mmol/L (8-16); CALCIUM 7.9 mg/dL (8.5-10.1); CARBON DIOXIDE 21.5 mmol/L (21.0-32.0); CREATININE - SERUM 2.7 mg/dL (0.6-1.3); PHOSPHOROUS 4.7 mg/dL (2.5-4.9); POTASSIUM - SERUM 3.4 mmol/L (3.5-5.1)
--- NOTE | 2020-01-08 09:59 | NUR ---
Nutrition follow-up: Pt NPO for trach/PEG placement today Labs reviewed WT: 282# Intubated, sedated Recommend starting Glucerna 1.0 sonya @ 25 ml/hr with increase to goal rate of 75 ml/hr with 25 ml H2O flush q hour RDN following.
--- NOTE | 2020-01-08 18:00 | NUR ---
FAMILY NOTIFIED OF SURGERY TO BE DONE TOMORROW
--- NOTE | 2020-01-08 19:13 | MORECARE ---
CASE MANAGEMENT DISCHARGE SUMMARY PATIENT: JHON HERNANDEZ UNIT: [id number] ADM DATE: 12/19/19 AGE: 64 : 59 SEX: M ROOM/BED: D.2310 AUTHOR: COLLETTE,DOC PHYSICIAN: REFERRING PHYSICIAN: INDIA LOPES MD DATE OF SERVICE: 01/08/20 Discharge Plan Patient Name: JHON HERNANDEZ Facility: [facility]:[place] : 1955 Planned Disposition: Anticipated Discharge Date: Discharge Date: Expected LOS: Initial Reviewer: [email or web address] Initial Review Date: 12/19/2019 Generated: 01/08/20 8:12 pm DCP- Discharge Planning Updated by [email or web address]: Claudia Vásquez on 12/27/19 8:[address] Patient Name: JHON HERNANDEZ Admission Status: Elective Accout number: [id number] Admission Date: 12-19-2019 : 1955 Admission Diagnosis:COVID-19 Attending: INDIA LOPES Current LOS: 8 Anticipated DC Date: Planned Disposition: Primary Insurance: MEDICARE A & B Discharge Planning Comments: CM called and spoke with patient's contact Kristen Washington [phone]. Kristen stated that the patient was a prison resident at [facility] and plan will be for him return there upon discharge. CM will continue to follow and assist as needed with discharge planning / needs. Ice Cream Mixer: Claudia Vásquez DCPIA - Discharge Planning Initial Assessment Updated by [id number]: Claudia Vásquez on 12/27/19 9:21 pm * Is the patient Alert and Oriented? No * PCP [facility] * Pharmacy [facility] * Preadmission Environment Tandem Operator Chcf * Facility Name [facility] * ADLs Partial Dependent * Partial ADLs (Assistance needed) Ambulation Bathing Dressing Eating Medication Management Toileting Transfers * Equipment Wheelchair * List name and contact numbers for known caregivers / representatives who currently or will assist patient after discharge: Kristen posadas- [phone] Nestorbeto Guzman Rob - [phone] * Verbal permission to speak to the caregivers and representatives has been obtained from the patient. No * Additional services required to return to the preadmission environment? No * Can the patient safely return to the preadmission environment? Yes * Has this patient been hospitalized within the prior 30 days at any hospital? No Coverage Notice Reviewer: [email or web address] Rob Vásquez Notice Issued Date-Time: 01/08/2020 19:06 Notice Type: Patient Choice Letter Notice Delivered To: Family Member Relationship to Patient: Niece Raveler Name: Delivery Method: HAND - Hand Delivered Bhakti Days: Prior Verbal Notification: Recipient Understood Notice: Yes Recipient Signature: Yes Med Rec Note Co-signed by Attending: Coverage Notice Comment: [facility] Last DP export: 12/27/19 8:29 p Patient Name: JHON HERNANDEZ Page 33524 at 1913 All edits/amendments must be made on the electronic document DICTATION DATE: 01/08/201911 BINDING BENCH WORKER: LOUIS 01/08/201911 RPT#: [id number] DC DATE: STATUS: ADM IN [facility] [address] [place] [address] END OF REPORT
--- NOTE | 2020-01-08 19:20 | MORECARE ---
CASE MANAGEMENT DISCHARGE SUMMARY PATIENT: JHON HERNANDEZ UNIT: [id number] ADM DATE: 12/19/19 AGE: 64 : 59 SEX: M ROOM/BED: D.2310 AUTHOR: COLLETTE,DOC PHYSICIAN: REFERRING PHYSICIAN: INDIA LOPES MD DATE OF SERVICE: 01/08/20 Discharge Plan Patient Name: JHON HERNANDEZ Facility: [facility]:[place] : 1955 Planned Disposition: Anticipated Discharge Date: Discharge Date: Expected LOS: Initial Reviewer: [email or web address] Initial Review Date: 12/19/2019 Generated: 01/08/20 8:19 pm Comments DCP- Discharge Planning Updated by [email or web address]: Claudia Vásquez on 01/08/20 6:[address] CM spoke with gabrielegiles Kristen Washington [phone] and she gave verbal consent for [facility] [place]. CM will send referral in am after PEG/ Trach placement. CM will continue to follow and assist as needed with discharge planning / needs. DCP- Discharge Planning Updated by [email or web address]: Claudia Vásquez on 12/27/19 8:[address] Patient Name: JHON HERNANDEZ Admission Status: Elective Accout number: [id number] Admission Date: 12-19-2019 : 1955 Admission Diagnosis:COVID-19 Attending: INDIA LOPES Current LOS: 8 Anticipated DC Date: Planned Disposition: Primary Insurance: MEDICARE A & B Discharge Planning Comments: CM called and spoke with patient's contact Kristen Washington [phone]. 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 CM will continue to follow and assist as needed with discharge planning / needs. Bus Driver/Monitor: Claudia Vásquez DCPIA - Discharge Planning Initial Assessment Updated by [email or web address]: Claudia Vásquez on 12/27/19 9:21 pm * Is the patient Alert and Oriented? No * PCP [facility] * Pharmacy [facility] * Preadmission Environment Half-Way Half-Way * Facility Name [facility] * ADLs Partial Dependent * Partial ADLs (Assistance needed) Ambulation Bathing Dressing Eating Medication Management Toileting Transfers * Equipment Wheelchair * List name and contact numbers for known caregivers / representatives who currently or will assist patient after discharge: Kristen Washington - katharina- [phone] Donita boothe - [phone] * Verbal permission to speak to the caregivers and representatives has been obtained from the patient. No * Additional services required to return to the preadmission environment? No * Can the patient safely return to the preadmission environment? Yes * Has this patient been hospitalized within the prior 30 days at any hospital? No Coverage Notice Reviewer: [email or web address] Rob Vásquez Notice Issued Date-Time: 01/08/2020 19:06 Notice Type: Patient Choice Letter Notice Delivered To: Family Member Relationship to Patient: Niece Waste Reduction Coordinator Name: Delivery Method: HAND - Hand Delivered Bhakti Days: Prior Verbal Notification: Recipient Understood Notice: Yes Recipient Signature: Yes Med Rec Note Co-signed by Attending: Coverage Notice Comment: [facility] ARGUETA Last DP export: 01/08/20 6:13 pm Patient Name: JHON HERNANDEZ Page 13739 at 1920 All edits/amendments must be made on the electronic document DICTATION DATE: 01/08/201918 FAMILY READINESS SUPPORT ASSISTANT: LOUIS 01/08/201918 RPT#: [id number] DC DATE: STATUS: ADM IN [facility] [address] [place] [address] END OF REPORT
[2020-01-08 22:30] LABS: ANION GAP 14.4 mmol/L (8-16); CALCIUM 7.7 mg/dL (8.5-10.1); CARBON DIOXIDE 22.4 mmol/L (21.0-32.0); CREATININE - SERUM 2.6 mg/dL (0.6-1.3); POTASSIUM - SERUM 3.8 mmol/L (3.5-5.1)
[2020-01-09] VITALS (20 sets, daily range): BP systolic 112–179; BP diastolic 49–84
[2020-01-09 05:26] LABS: BASOPHILS 0.1 % (0-2); EOSINOPHILS 0.6 % (0-7); HEMOGLOBIN 8.4 g/dL (13.5-17.5); IMMATURE GRANULOCYTES 0.8 % (0-5); MCH 27.2 pg (26.0-34.0); MCHC 31.1 g/dL (31.0-37.0); MCV 87.4 fL (80.0-100.0); MEAN PLATELET VOLUME 11.5 fL (7.4-10.4); MONOCYTES 4.3 % (2-11); NEUTROPHILS 85.2 % (40-80); PLATELET COUNT 158 10x3/uL (130-400); RBC 3.09 10x6/uL (4.20-6.10); RDW 16.8 % (11.5-14.5); WBC 17.1 10x3/uL (4.8-10.8)
[2020-01-09 05:37] LABS: ALBUMIN 1.9 g/dL (3.4-5.0); ANION GAP 15.4 mmol/L (8-16); BILIRUBIN - TOTAL 0.76 mg/dL (0.2-1.3); CARBON DIOXIDE 22.4 mmol/L (21.0-32.0); CREATININE - SERUM 2.6 mg/dL (0.6-1.3); POTASSIUM - SERUM 3.8 mmol/L (3.5-5.1); PROTEIN - SERUM 4.6 g/dL (6.4-8.2)
[2020-01-09 05:40] LABS: CALCIUM 7.8 mg/dL (8.5-10.1)
--- NOTE | 2020-01-09 16:26 | MORECARE ---
CASE MANAGEMENT DISCHARGE SUMMARY PATIENT: JHON HERNANDEZ UNIT: [id number] ADM DATE: 12/19/19 AGE: 64 : 59 SEX: M ROOM/BED: D.2313 AUTHOR: COLLETTE,DOC PHYSICIAN: REFERRING PHYSICIAN: INDIA LOPES MD DATE OF SERVICE: 01/09/20 Discharge Plan Patient Name: JHON HERNANDEZ Facility: [facility]:Price : 1955 Planned Disposition: Anticipated Discharge Date: Discharge Date: Expected LOS: Initial Reviewer: [email or web address] Initial Review Date: 12/19/2019 Generated: 01/09/20 5:26 pm Comments DCP- Discharge Planning Updated by [email or web address]: Claudia Vásquez on 01/08/20 6:[address] CM spoke with gabrielegiles Kristen [place] [phone] and she gave verbal consent for [facility] in [place]. CM will send referral in am after PEG/ Trach placement. CM will continue to follow and assist as needed with discharge planning / needs. DCP- Discharge Planning Updated by [email or web address]: Claudia Vásquez on 12/27/19 8:[address] Patient Name: JHON HERNANDEZ Admission Status: Elective Accout number: [id number] Admission Date: 12-19-2019 : 1955 Admission Diagnosis:COVID-19 Attending: INDIA LOPES Current LOS: 8 Anticipated DC Date: Planned Disposition: Primary Insurance: MEDICARE A & B Discharge Planning Comments: CM called and spoke with patient's contact Kristen Washington [phone]. Kristen stated that the patient was a termite treater helper resident at [facility] and plan will be for him return there upon discharge. CM will continue to follow and assist as needed with discharge planning / needs. Retail Assistant Store Manager: Claudia Vásquez DCPIA - Discharge Planning Initial Assessment Updated by [email or web address]: Claudia Vásquez on 12/27/19 9:21 pm * Is the patient Alert and Oriented? No * PCP [facility] * Pharmacy [facility] * Preadmission Environment Global Transportation Manager Retirement * Facility Name [facility] * ADLs Partial Dependent * Partial ADLs (Assistance needed) Ambulation Bathing Dressing Eating Medication Management Toileting Transfers * Equipment Wheelchair * List name and contact numbers for known caregivers / representatives who currently or will assist patient after discharge: Kristen posadas- [phone] Donita boothe - [phone] * Verbal permission to speak to the caregivers and representatives has been obtained from the patient. No * Additional services required to return to the preadmission environment? No * Can the patient safely return to the preadmission environment? Yes * Has this patient been hospitalized within the prior 30 days at any hospital? No External Providers External Provider: [facility] Next Contact Date: Service Request Date: Service Type: Resolution: Reviewer: Comments: Coverage Notice Reviewer: [email or web address] Rob Vásquez Notice Issued Date-Time: 01/08/2020 19:06 Notice Type: Patient Choice Letter Notice Delivered To: Family Member Relationship to Patient: Niece Glove Stitcher Name: Delivery Method: HAND - Hand Delivered Bhakti Days: Prior Verbal Notification: Recipient Understood Notice: Yes Recipient Signature: Yes Med Rec Note Co-signed by Attending: Coverage Notice Comment: [facility] Last DP export: 01/08/20 6:20 pm Patient Name: JHON HERNANDEZ Page [id number] at 1626 All edits/amendments must be made on the electronic document DICTATION DATE: 01/09/201625 TRANSPORT RN: LOUIS 01/09/201625 RPT#: [id number] DC DATE: STATUS: ADM IN [facility] [address] [place] [address] END OF REPORT
[2020-01-10] VITALS (24 sets, daily range): BP systolic 110–176; BP diastolic 50–68
[2020-01-10 05:05] LABS: BASOPHILS 0 % (0-2); EOSINOPHILS 0.8 % (0-7); HEMOGLOBIN 8.2 g/dL (13.5-17.5); IMMATURE GRANULOCYTES 0.6 % (0-5); LYMPHOCYTES 7.7 % (15-50); MCH 27.6 pg (26.0-34.0); MCHC 31.5 g/dL (31.0-37.0); MCV 87.5 fL (80.0-100.0); MEAN PLATELET VOLUME 11.2 fL (7.4-10.4); MONOCYTES 4.3 % (2-11); NEUTROPHILS 86.6 % (40-80); PLATELET COUNT 146 10x3/uL (130-400); RBC 2.97 10x6/uL (4.20-6.10); WBC 16.6 10x3/uL (4.8-10.8)
[2020-01-10 05:49] LABS: ALBUMIN 1.9 g/dL (3.4-5.0); ALKALINE PHOSPHATASE 74 U/L (30-120); ALT (SGPT) 49 U/L (10-68); BILIRUBIN - TOTAL 0.79 mg/dL (0.2-1.3); CALCIUM 7.7 mg/dL (8.5-10.1); CARBON DIOXIDE 23.7 mmol/L (21.0-32.0); CHLORIDE - SERUM 108 mmol/L (98-107); CREATINE KINASE 273 UL (21-232); CREATININE - SERUM 2.5 mg/dL (0.6-1.3); MAGNESIUM - SERUM 1.9 mg/dL (1.8-2.4); PHOSPHOROUS 5.6 mg/dL (2.5-4.9); POTASSIUM - SERUM 3.9 mmol/L (3.5-5.1); SODIUM 141 mmol/L (136-145); UREA NITROGEN 62 mg/dL (7-18); VANCOMYCIN - RANDOM 20.1 ug/mL (10.0-20.0); eGFR NON AFRICAN AMERICAN 28 mL/min (90-120)
[2020-01-10 05:58] LABS: CALC OSMOLALITY 296 mosm/kg (275-300); GLUCOSE 66 mg/dL (74-106)
[2020-01-10 05:59] LABS: CKMB 2.7 U/L (0.0-3.6)
--- NOTE | 2020-01-10 19:10 | NUR ---
MYSELF AND BETITO BONILLA RN RECIVED REPORT ON PT. JUST INFORMED THAT HIS COVID TEST CAME BACK NEGATIVE SO HE CAN NOW BE TAKEN OFF ISOALTION. PT IS SEDATED AND TRACHED. VSS. RESTRAINTS ARE OBSERVED, AND EXTREMIES ARE WARM AND PINK. CAMPOS OBSERVED TO GRAVITY WITH YELLOW URINE. WILL PERFORM FULL ASSESSMENT AND DOC IN FLOWSHEET. BED IS LOW,SIDE RAISLX2,CALL LIGHT WITHIN REACH. WILL CONITNUE TO MONITOR
--- NOTE | 2020-01-10 20:19 | MORECARE ---
CASE MANAGEMENT DISCHARGE SUMMARY PATIENT: JHON HERNANDEZ UNIT: [id number] ADM DATE: 12/19/19 AGE: 64 : 59 SEX: M ROOM/BED: D.2313 AUTHOR: COLLETTE,DOC PHYSICIAN: REFERRING PHYSICIAN: INDIA LOPES MD DATE OF SERVICE: 01/10/20 Discharge Plan Patient Name: JHON HERNANDEZ Facility: [facility]:[place] : 1955 Planned Disposition: Anticipated Discharge Date: Discharge Date: Expected LOS: Initial Reviewer: [email or web address] Initial Review Date: 12/19/2019 Generated: 01/10/20 9:18 pm Comments DCP- Discharge Planning Updated by [email or web address]: Claudia Vásquez on 01/10/20 7:[address] CM called and faxed records to [facility] - pending negative COVID test patient is accepted. Covid test neg today and plan is for patient to discharge in am to [facility]. D/C IMM COMPLETE DCP- Discharge Planning Updated by [email or web address]: Claudia Vásquez on 01/08/20 6:[address] CM spoke with noemi Gordillo [phone] and she gave verbal consent for [facility] in [place]. CM will send referral in am after PEG/ Trach placement. CM will continue to follow and assist as needed with discharge planning / needs. DCP- Discharge Planning Updated by [email or web address]: Claudia Vásquez on 12/27/19 8:[address] Patient Name: JHON HERNANDEZ Admission Status: Elective Accout number: [id number] Admission Date: 12-19-2019 : 1955 Admission Diagnosis:COVID-19 Attending: INDIA LOPES Current LOS: 8 Anticipated DC Date: Planned Disposition: Primary Insurance: MEDICARE A & B Discharge Planning Comments: CM called and spoke with patient's contact Rebecca Gordillo [phone]. Rebecca stated that the patient was a retirement resident at [facility] and plan will be for him return there upon discharge. CM will continue to follow and assist as needed with discharge planning / needs. Baker Second: Claudia Vásquez DCPIA - Discharge Planning Initial Assessment Updated by [email or web address]: Claudia Vásquez on 12/27/19 9:21 pm * Is the patient Alert and Oriented? No * PCP [facility] * Pharmacy [facility] * Preadmission Environment Longterm Snf * Facility Name [facility] * ADLs Partial Dependent * Partial ADLs (Assistance needed) Ambulation Bathing Dressing Eating Medication Management Toileting Transfers * Equipment Wheelchair * List name and contact numbers for known caregivers / representatives who currently or will assist patient after discharge: Rebecca Gordillo - katharina- [phone] Donita boothe - [phone] * Verbal permission to speak to the caregivers and representatives has been obtained from the patient. No * Additional services required to return to the preadmission environment? No * Can the patient safely return to the preadmission environment? Yes * Has this patient been hospitalized within the prior 30 days at any hospital? No Coverage Notice Reviewer: [email or web address] Rob Vásquez Notice Issued Date-Time: 01/08/2020 19:06 Notice Type: Patient Choice Letter Notice Delivered To: Family Member Relationship to Patient: Niece Packer Denture Name: Delivery Method: HAND - Hand Delivered Bhakti Days: Prior Verbal Notification: Recipient Understood Notice: Yes Recipient Signature: Yes Med Rec Note Co-signed by Attending: Coverage Notice Comment: [facility] Reviewer: [email or web address] Rob Vásquez Notice Issued Date-Time: 01/10/2020 17:00 Notice Type: IM Discharge Notice Notice Delivered To: Family Member Relationship to Patient: Niece Packer Denture Name: REBECCA GORDILLO Delivery Method: PHONE - Phone Bhakti Days: Prior Verbal Notification: Yes Recipient Understood Notice: Yes Recipient Signature: Med Rec Note Co-signed by Attending: Coverage Notice Comment: Last DP export: 01/09/20 3:26 p Patient Name: JHON HERNANDEZ Page [id number] at 2019 All edits/amendments must be made on the electronic document DICTATION DATE: 01/10/202017 VEGETABLE BUNCHER: LOUIS 01/10/202017 RPT#: [id number] DC DATE: STATUS: ADM IN [facility] [address] [place] [address] END OF REPORT
[2020-01-11] VITALS (14 sets, daily range): BP systolic 123–166; BP diastolic 51–64
[2020-01-11 06:27] LABS: BASOPHILS 0.1 % (0-2); HEMATOCRIT 25.7 % (42.0-54.0); HEMOGLOBIN 7.9 g/dL (13.5-17.5); IMMATURE GRANULOCYTES 0.5 % (0-5); LYMPHOCYTES 8.2 % (15-50); MCH 27.4 pg (26.0-34.0); MCHC 30.7 g/dL (31.0-37.0); MCV 89.2 fL (80.0-100.0); MEAN PLATELET VOLUME 11.4 fL (7.4-10.4); MONOCYTES 5.1 % (2-11); NEUTROPHILS 85.1 % (40-80); PLATELET COUNT 159 10x3/uL (130-400); RBC 2.88 10x6/uL (4.20-6.10); RDW 17.4 % (11.5-14.5); WBC 17.2 10x3/uL (4.8-10.8)
[2020-01-11 06:35] LABS: ANION GAP 14.8 mmol/L (8-16); CALCIUM 7.9 mg/dL (8.5-10.1); CARBON DIOXIDE 23.8 mmol/L (21.0-32.0); CREATININE - SERUM 2.3 mg/dL (0.6-1.3); POTASSIUM - SERUM 3.6 mmol/L (3.5-5.1)
[2020-01-11 06:43] LABS: BILIRUBIN - TOTAL 0.82 mg/dL (0.2-1.3); PROTEIN - SERUM 4.9 g/dL (6.4-8.2)
--- NOTE | 2020-01-11 11:14 | NUR ---
0700 REPORT RECIEVED AND CARE ASSUMED OF PATIENT.. SEE FLOW SHEET FOR ASSESMENT FINDINGS.. 0740 DR GEORGE IN TO SEE PATIENT.. UPDATE GIVEN 0930 T MADAY WILHELM FROM A LINE BY UPDATE NURSE FOR THE LAB.. [address] DR NGUYEN IN TO SEE PATIENT.. 1020 DR SALAZAR IN TO SEE PATIENT.. [facility] Nidia ESPINOZA HAS CALLED AND DOC TO DOC HAND OFF DONE WITH DR SALAZAR AND NURSE PRACTITIONER
--- NOTE | 2020-01-11 15:03 | NUR ---
1500 PT TRANSPORTED OUT OF ICU VIA STRECHER WITH AMBULANCE STAFF TO BE TRANSFERED TO [facility] IN [facility] REPORT CALLED TO STEPHANIE RN DRESSING CHANGE TO TRIALYSIS CATH DONE PRIOR TO TRANSPORT PT SENT WITH VERSED AND [facility]ANY[facility] INFUSING AT CURRENT RATES..
--- NOTE | 2020-01-13 10:20 | MORECARE ---
CASE MANAGEMENT DISCHARGE SUMMARY PATIENT: JHON HERNANDEZ UNIT: [id number] ADM DATE: 12/19/19 AGE: 64 : 59 SEX: M ROOM/BED: D.2313 AUTHOR: COLLETTE,DOC PHYSICIAN: REFERRING PHYSICIAN: INDIA LOPES MD DATE OF SERVICE: 01/13/20 Discharge Plan Patient Name: JHON HERNANDEZ Facility: [facility]:[place] : 1955 Planned Disposition: Anticipated Discharge Date: Discharge Date: 01/11/2020 Expected LOS: Initial Reviewer: [email or web address] Initial Review Date: 12/19/2019 Generated: 01/13/20 11:19 am Comments DCP- Discharge Planning Updated by [email or web address]: Claudia Vásquez on 01/10/20 7:[address] CM called and faxed records to [facility] - pending negative COVID test patient is accepted. Covid test neg today and plan is for patient to discharge in am to [facility]. D/C IMM COMPLETE DCP- Discharge Planning Updated by [email or web address]: Claudia Vásquez on 01/08/20 6:[address] CM spoke with gabrielegiles Rebecca Gordillo [phone] and she gave verbal consent for [facility] in [place]. CM will send referral in am after PEG/ Trach placement. CM will continue to follow and assist as needed with discharge planning / needs. DCP- Discharge Planning Updated by [email or web address]: Claudia Vásquez on 12/27/19 8:[address] Patient Name: JHON HERNANDEZ Admission Status: Elective Accout number: [id number] Admission Date: 12-19-2019 : 1955 Admission Diagnosis:COVID-19 Attending: INDIA LOPES Current LOS: 8 Anticipated DC Date: Planned Disposition: Primary Insurance: MEDICARE A & B Discharge Planning Comments: CM called and spoke with patient's contact Rebecca Felix [phone]. Rebecca stated that the patient was a snf resident at [facility] and plan will be for him return there upon discharge. CM will continue to follow and assist as needed with discharge planning / needs. Counseling Department Chair: Claudia Vásquez DCPIA - Discharge Planning Initial Assessment Updated by [email or web address]: Claudia Vásquez on 12/27/19 9:21 pm * Is the patient Alert and Oriented? No * PCP [facility] * Pharmacy [facility] * Preadmission Environment [facility] * Facility Name [facility] * ADLs Partial Dependent * Partial ADLs (Assistance needed) Ambulation Bathing Dressing Eating Medication Management Toileting Transfers * Equipment Wheelchair * List name and contact numbers for known caregivers / representatives who currently or will assist patient after discharge: Rebecca posadas- [phone] Donita boothe - [phone] * Verbal permission to speak to the caregivers and representatives has been obtained from the patient. No * Additional services required to return to the preadmission environment? No * Can the patient safely return to the preadmission environment? Yes * Has this patient been hospitalized within the prior 30 days at any hospital? No Coverage Notice Reviewer: [email or web address] Rob Vásquez Notice Issued Date-Time: 01/08/2020 19:06 Notice Type: Patient Choice Letter Notice Delivered To: Family Member Relationship to Patient: Niece Cable Placer Name: Delivery Method: HAND - Hand Delivered Bhakti Days: Prior Verbal Notification: Recipient Understood Notice: Yes Recipient Signature: Yes Med Rec Note Co-signed by Attending: Coverage Notice Comment: [facility] Reviewer: [id number] Rob Vásquez Notice Issued Date-Time: 01/10/2020 17:00 Notice Type: IM Discharge Notice Notice Delivered To: Family Member Relationship to Patient: Niece Cable Placer Name: REBECCA GORDILLO Delivery Method: PHONE - Phone Bhakti Days: Prior Verbal Notification: Yes Recipient Understood Notice: Yes Recipient Signature: Med Rec Note Co-signed by Attending: Coverage Notice Comment: Last DP export: 01/10/20 7:18 p Patient Name: JHON HERNANDEZ Page [id number] at 1020 All edits/amendments must be made on the electronic document DICTATION DATE: 01/13/20 1019 POULTRY SEXER: LOUIS 01/13/20 1019 RPT#: [id number] DC DATE:01/11/20 STATUS: DIS IN [facility] [address] [place] [address] END OF REPORT
== END 2020-01-11 15:12 | disposition short-term general hospital (02) | DRG 4 ==
LOC: D.ICU 16:30 → D.M2 01-08 15:03 → D.ICU 01-08 15:23
PROVIDERS: Emergency Medicine; Family Medicine; Internal Medicine; Internal Medicine Nephrology; Internal Medicine Pulmonary Disease; Surgery; ADMIT Family Medicine; ATTEND Family Medicine
PROC: 5A1955Z Respiratory Ventilation, Greater than 96 Consecutive Hours (ICD-10-PCS; principal; 2019-12-19)
PROC: 0B113F4 Bypass Trachea to Cutaneous with Tracheostomy Device, Percutaneous Approach (ICD-10-PCS; 2020-01-10)
PROC: 0BJ08ZZ Inspection of Tracheobronchial Tree, Via Natural or Artificial Opening Endoscopic (ICD-10-PCS; 2020-01-10)
PROC: 0DB78ZX Excision of Stomach, Pylorus, Via Natural or Artificial Opening Endoscopic, Diagnostic (ICD-10-PCS; 2020-01-10)
DX: U07.1 COVID-19 (principal); J96.01 Acute respiratory failure with hypoxia; I50.33 Acute on chronic diastolic (congestive) heart failure; J18.9 Pneumonia, unspecified organism; I13.0 Hypertensive heart and chronic kidney disease with heart failure and stage 1 through stage 4 chronic kidney disease, or unspecified chronic kidney disease; J44.1 Chronic obstructive pulmonary disease with (acute) exacerbation; N39.0 Urinary tract infection, site not specified; N18.9 Chronic kidney disease, unspecified; E11.22 Type 2 diabetes mellitus with diabetic chronic kidney disease; E83.39 Other disorders of phosphorus metabolism; N40.0 Benign prostatic hyperplasia without lower urinary tract symptoms; G47.00 Insomnia, unspecified; M19.90 Unspecified osteoarthritis, unspecified site; K21.9 Gastro-esophageal reflux disease without esophagitis; E78.5 Hyperlipidemia, unspecified; B96.20 Unspecified Escherichia coli [E. coli] as the cause of diseases classified elsewhere